=== PATIENT | male | born 1985 | race American Indian/Alaskan Native ===

== ENCOUNTER 2020-02-25 08:42 | Emergency (ER) | payer SELFPAY ==
[2020-02-25 08:48] VITALS: BP 131/69
--- NOTE | 2020-02-25 10:28 | Emergency Department Report ---
[facility] Chief Complaint: Eye Problems Stated Complaint: LEFT EYE PAIN Time Seen by Provider: 02/25/20 09:40 Duration: 1 Day Side: Left Severity: mild Symptoms: Yes Eye Itching, Yes Eye Redness, Yes Eye Pain, Yes Purulent Drainage, No Mucous Drainage, No Blurred Vision, No Preceding URI, No H/O Allergic Rhinitis, No Contact Lens Use, No Trauma, No Fever, No Headache ED Review of Systems ROS: Stated complaint: LEFT EYE PAIN Other details as noted in HPI Comment: All other systems reviewed and negative ED Past Medical Hx - Past Medical History Previous Medical History?: Yes Hx Asthma: Yes Additional medical history: Sleep apnea - Surgical History Past Surgical History?: No - Social History Smoking Status: Current Every Day Smoker Substance Use Type: None - Medications Home Medications: Home Medications Medication Instructions Recorded Confirmed Last Taken Type Gentamicin 0.3% Ophth Soln 2 drops OP Q4H #1 bottle 02/18/15 Unknown Rx Ibuprofen [Motrin] 800 mg PO Q8HR PRN #30 tablet 02/18/15 Unknown Rx traMADoL [Ultram] 50 mg PO Q6HR PRN #14 tablet 02/18/15 Unknown Rx Ketorolac Tromethamin 0.4%(Nf) 1 drop OP QID #1 bottle 02/25/20 Unknown Rx [Acular Ls 0.4% Ophth Darleen] Tobramycin [Tobrex] 1 drop OP Q4H #1 bottle 02/25/20 Unknown Rx [facility] Exam - Exam General: Vital signs noted. No distress. Alert and acting appropriately. Eye Exam: Left Injection, Left EOMI, Left Purulent Discharge, Neither Chemosis, Neither Abnormal Pupil, Neither Eye Foreign Body, Neither Lid Foreign Body, Neither Mucous Discharge, Neither Fluorescein Uptake, Neither Fluorescein Uptake (slit lamp), Neither Cell/Flare (slit lamp), Neither Corneal Edema, Neither Photophobia HEENT: Yes Nasal Congestion, No Pharyngeal Erythema Remainder of HEENT: Normal Lungs: Yes Clear Lung Sounds, Yes Good Air Exchange, No Wheezes, No Stridor, No Cough, No Nasal Flaring, No Retractions, No Use of Accessory Muscles ED Course Vital Signs 02/25/20 08:45 Temperature 97.8 F Pulse Rate 76 Respiratory 18 Rate Blood Pressure 131/69 O2 Sat by Pulse 96 Oximetry Critical care attestation.: If time is entered above; I have spent that time in minutes in the direct care of this critically ill patient, excluding procedure time. ED Disposition Clinical Impression: Conjunctivitis Disposition: DC-01 TO HOME OR SELFCARE Is pt being admited?: No Does the pt Need Aspirin: No Condition: Stable Instructions: Conjunctivitis (ED) Prescriptions: Ketorolac Tromethamin 0.4%(Nf) [Acular Ls 0.4% Ophth Darelen] 1 drop OP QID #1 bottle Tobramycin [Tobrex] 1 drop OP Q4H #1 bottle Referrals: JIMBO PROCTOR MD [Staff Physician] - 3-5 Days
== END 2020-02-25 10:46 | disposition home or self-care (01) ==
LOC: ED 08:42
DX: H10.9 Unspecified conjunctivitis (principal); J45.909 Unspecified asthma, uncomplicated; F17.200 Nicotine dependence, unspecified, uncomplicated; Z79.899 Other long term (current) drug therapy
CPT/HCPCS: 99281

== ENCOUNTER 2021-02-13 23:55 | Emergency (ER) | payer OTHER ==
[2021-02-14 00:40] VITALS: BP 111/67
--- NOTE | 2021-02-14 01:23 | XRay Report ---
CHEST 2 VIEWS INDICATION / CLINICAL INFORMATION: CP. Chest pain FINDINGS: SUPPORT DEVICES: None. HEART / MEDIASTINUM: No significant abnormality. LUNGS / PLEURA: No significant pulmonary or pleural abnormality. No pneumothorax. ADDITIONAL FINDINGS: No significant additional findings. IMPRESSION: 1. No acute findings. Signer Name: Dom Rainey MD Signed: 02/14/2021 1:19 AM Workstation Name: [id number]
[2021-02-14 01:26] LABS: Alanine Aminotransferase 21 units/L (7-56); Albumin 4.2 g/dL (3.9-5); BUN/Creatinine Ratio 10; Blood Urea Nitrogen 13 mg/dL (9-20); Calcium 9.1 mg/dL (8.4-10.2); Hemolysis Index 6
[2021-02-14 01:59] LABS: Hematocrit 42.6 % (35.5-45.6); Hemoglobin 14.4 gm/dl (11.8-15.2); Mean Corpuscular HGB Conc 34 % (32-34); Mean Corpuscular Volume 89 fl (84-94); Platelet Count 279 K/mm3 (140-440); Red Cell Distribution Width 14.3 % (13.2-15.2)
[2021-02-14 04:35] LABS: Total Cells Counted 100
[2021-02-14 04:36] LABS: Anisocytosis 1+; Platelet Estimate Consistent w Auto
--- NOTE | 2021-02-15 09:52 | Electrocardiograph Report ---
[facility] Test Date: 2021-02-14 Test Time: 00:50:49 Pat Name: HILARIA ZAMARRIPA Department: Room: Gender: M Copyist: MIGUEL A : 1985 Requested By: ED DOC Order Number: [id number] Reading MD: Garo Robb Measurements Intervals [place] Rate: 64 P: 54 OR: 153 QRS: 77 QRSD: 96 T: 53 QT: 358 QTc: 370 Interpretive Statements Sinus rhythm Probable anterior infarct, old ST elevation, ?early repolarization,consider inferior injury No previous ECG available for comparison Electronically Signed On 02-15-2021 9:51:29 EDT by Garo Robb
== END 2021-02-15 04:48 | disposition home or self-care (01) ==
LOC: ED 23:55
DX: R07.9 Chest pain, unspecified (principal); Z53.21 Procedure and treatment not carried out due to patient leaving prior to being seen by health care provider
CPT/HCPCS: 36415; 71046; 80053; 84484; 85007; 85025; 93005